=== PATIENT | female | born 1960 | race Caucasian/White ===

== ENCOUNTER 2020-05-07 13:10 | Emergency (ER) | payer OTHER ==
[~2020-05-07] VITALS: Ht 165.1 cm; Wt 68.4 kg
[2020-05-07] MEDS ORDERED: NORE0.353 PO (13:25)
[2020-05-07] MEDS ORDERED: SPIR50TA4 PO (13:25)
[2020-05-07] MEDS ORDERED: ESTR25TD TD (13:25)
[2020-05-07 13:36] LABS: BASO # 0.1 10^3/uL (0.0-0.2); EOS # 0.2 10^3/uL (0.0-0.5); EOS % 1.8 % (0.0-3.0); HEMATOCRIT 43.9 % (36.0-47.0); LYMPH # 2.3 10^3/uL (1.5-5.0); LYMPH % 20.1 % (24.0-44.0); MEAN CORPUSCULAR HEMOGLOBIN 32.7 pg (27.0-33.0); MEAN CORPUSCULAR HGB CONC 34.2 g/dl (32.0-36.5); MEAN CORPUSCULAR VOLUME 95.6 fl (80.0-96.0); MONO % 8.4 % (0.0-5.0); NEUTROPHILS # 7.7 10^3/uL (1.5-8.5); NEUTROPHILS % 67.5 % (36.0-66.0); PLATELET COUNT, AUTOMATED 337 10^3/uL (150-450); RED BLOOD COUNT 4.59 10^6/uL (4.00-5.40); WHITE BLOOD COUNT 11.4 10^3/uL (4.0-10.0)
--- NOTE | 2020-05-07 13:50 | REP ---
Portable chest x-ray: Single view. History: Chest pain. Findings: The lungs are symmetrically aerated and clear. The pleural angles are sharp. A dextroconvex curve is seen in the lower thoracic spine. Heart size is normal. The aorta slightly tortuous. Pulmonary vasculature is not increased. Monitoring electrodes are seen. Impression: No active disease. Electronically Signed by Ben Caballero MD 05/07/2020 01:42 P
[2020-05-07 13:57] LABS: INR 1.01
[2020-05-07 14:05] LABS: BLOOD UREA NITROGEN 15 MG/DL (7-18); CARBON DIOXIDE LEVEL 23 MEQ/L (21-32); CHLORIDE LEVEL 108 MEQ/L (98-107); CK-MB VALUE MASS < 1.0 NG/ML (<3.6); CPK CREATINE PHOSPHOKINASE 72 U/L (26-192); CREATININE FOR GFR 0.82 MG/DL (0.55-1.30); GLOMERULAR FILTRATION RATE > 60.0 (>51); GLUCOSE, FASTING 86 MG/DL (70-100); MB/CK RELATIVE INDEX 1.39 (< OR =4); NT-PRO BNP 135 PG/ML (<125); POTASSIUM SERUM 4.3 MEQ/L (3.5-5.1); SODIUM LEVEL 137 MEQ/L (136-145); TROPONIN I < 0.02 NG/ML (< 0.10)
[2020-05-07 14:15] VITALS: BP 125/68
--- NOTE | 2020-05-08 15:48 | ECGEPIP ---
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
== END 2020-05-07 14:34 | disposition home or self-care (01) ==
LOC: M ED 13:10
DX: R07.89 Other chest pain (principal); R60.0 Localized edema; I25.10 Atherosclerotic heart disease of native coronary artery without angina pectoris; Z79.899 Other long term (current) drug therapy; Z88.0 Allergy status to penicillin; F17.210 Nicotine dependence, cigarettes, uncomplicated